=== PATIENT | female | born 1950 | race Caucasian/White ===

== ENCOUNTER 2024-01-21 10:30 | Outpatient (RCR) | payer MEDICARE, SELFPAY ==
--- NOTE | 2023-11-30 14:17 | PTOPEVAL1 ---
Assessment and note entered by Nadiya Quintanilla, PT Evaluation Information Assessment Status Evaluation Diagnosis closed fracture of right patella, Oth. Abnormalities of gait and mobility weakness Stiffness of right knee Onset 11/10/23 Subjective Information Was taking recycle bin out, was ice on the concrete and slipped and fell breaking her knee cap. Had surgery 17 beatriz in her knee and states thinks he saw 2 pins in her knee cap. Currently is in locking knee brace instructions to go up in range on brace by 10 degrees each Thursday until the end of the month. thinks RTD is December 24 then will decide Reports 99% of the pain is gone. Has not had to take her pain medications and has about 8-10 pills left. Reported Pain Level Pain Score 1: Self Report Assessment PT Clinical Summary Pt presents with patellar fracture 11/10/23 with possible pinning of patella. Surgical incision present without signs of infection. Pt demo's abnormal gait pattern, decreased mobility, decreased strength and range of motion secondary to injury and surgical protocol. Pt was very independent and walked for fitness 5x weekly prior to injury. Pt will greatly benefit from therapy to address deficits and return to PLOF Plan of Care Interventions Electrical Stimulation,Gait Training,Hot Pack/Cold Pack,Manual Therapy,Neuro Re-education,Patient/ Caregiver Educati,Therapeutic Activities, Therapeutic Exercise,Self-Care/Home Management PT Services Indicated Yes Treatment Frequency and 1-2x weekly x 10 visits Duration These treatments will address the objective and functional deficits as defined above. The patient will be advanced safely and appropriately in order for the patient to progress towards his/her prior level of function. Additional exercises will be introduced and as well as a comprehensive home exercise program upon discharge, if needed, ?to ensure carryover of functional gains achieved in the clinic. This treatment plan has been reviewed and agreement upon by the patient.
--- NOTE | 2023-11-30 14:19 | PTOPEVAL1 ---
Assessment and note entered by Nadiya Quintanilla, PT Evaluation Information Assessment Status Evaluation Diagnosis closed fracture of right patella Pain in right knee Oth. Abnormalities of gait and mobility Weakness Stiffness of right knee Onset 11/10/23 Subjective Information Was taking recycle bin out, was ice on the concrete and slipped and fell breaking her knee cap. Had surgery 17 beatriz in her knee and states thinks he saw 2 pins in her knee cap. Currently is in locking knee brace instructions to go up in range on brace by 10 degrees each Thursday until the end of the month. thinks RTD is December 24 then will decide Reports 99% of the pain is gone. Has not had to take her pain medications and has about 8-10 pills left. Reported Pain Level Pain Score 1: Self Report Assessment PT Clinical Summary Pt presents with patellar fracture 11/10/23 with possible pinning of patella. Surgical incision present without signs of infection. Pt demo's abnormal gait pattern, decreased mobility, decreased strength and range of motion secondary to injury and surgical protocol. Pt was very independent and walked for fitness 5x weekly prior to injury. Pt will greatly benefit from therapy to address deficits and return to PLOF Plan of Care Interventions Electrical Stimulation,Gait Training,Hot Pack/Cold Pack,Manual Therapy,Neuro Re-education,Patient/ Caregiver Educati,Therapeutic Activities, Therapeutic Exercise,Self-Care/Home Management PT Services Indicated Yes Treatment Frequency and 1-2x weekly x 10 visits Duration These treatments will address the objective and functional deficits as defined above. The patient will be advanced safely and appropriately in order for the patient to progress towards his/her prior level of function. Additional exercises will be introduced and as well as a comprehensive home exercise program upon discharge, if needed, ?to ensure carryover of functional gains achieved in the clinic. This treatment plan has been reviewed and agreement upon by the patient.
--- NOTE | 2023-11-30 14:19 | OPREHPOC ---
Outpatient Therapy Plan of Care This is a Multidisciplinary Plan of Care that may contain components documented by all disciplines (PT, OT, and ST.) PT Problem 1 PT Problem #1 Knowledge Deficit PT Goal 1 Goal Pt will be independent in HEP Pt will verbalize understanding of diagnosis and prognosis Target Visit 8 PT Problem 2 PT Problem #2 Impaired Range of Motion PT Goal 1 Goal Pt will demo passive ROM 0-90 degrees with brace on. Target Visit 10 PT Goal 2 Goal Pt will demo AROM 0-120 to demo functional ROM Target Visit 18 PT Problem 3 PT Problem #3 Impaired Strength PT Goal 1 Goal Pending allowed strengthening, pt will demo knee extension and knee flexion of 3+/5 Target Visit 10 PT Goal 2 Goal Pending allowed strengthening, pt will demo knee extension and knee flexion of 4+/5 Target Visit 18 PT Problem 4 PT Problem #4 Impaired Gait PT Goal 1 Goal Pt will demo gait with either AD or brace pending progression of protocol, to work toward PLOF. Target Visit 10 PT Goal 2 Goal Pt will demo normalized gait pattern with or without brace (pending protocol) to work toward PLOF. Target Visit 18
--- NOTE | 2023-12-23 16:09 | PTOPPROG ---
Assessment and note entered by Nadiya Quintanilla, PT Assessment Status Progress Report Diagnosis closed fracture of right patella Therapy condition pain in right knee weakness stiffness in right knee oth. abnormalities of gait and mobility Onset 11/10/23 Subjective Information Pt is ambulating with single point cane outside of house and short distances in home. Is able to dress herself without help now Continues to have low pain levels. Assessment PT Clinical Summary Pt has attended therapy consistently for s/p ORIF after fall approx 6 weeks ago. She demo's active ROM 0-80 and passive ROM 0-90, has improved her ADLs to dressing herself, and is able to ambulate independently with brace locked with and without cane. Pt will benefit from continued therapy to progress range, strength, and mobility to return to PLOF. Plan of Care Interventions Electrical Stimulation,Gait Training,Hot Pack/Cold Pack,Manual Therapy,Neuro Re-education,Patient/ Caregiver Educati,Therapeutic Activities, Therapeutic Exercise,Self-Care/Home Management PT Services Indicated Yes Treatment Frequency and Cont 2x weekly x 10 visits Duration These treatments will address the objective and functional deficits as defined above. The patient will be advanced safely and appropriately in order for the patient to progress towards his/her prior level of function. Additional exercises will be introduced and as well as a comprehensive home exercise program upon discharge, if needed, ?to ensure carryover of functional gains achieved in the clinic. This treatment plan has been reviewed and agreement upon by the patient.
== END 2024-01-21 11:39 | disposition home or self-care (01) ==
LOC: ANHHIPT 10:30
PROVIDERS: PCP Physician Assistant Medical
DX: S82.001D Unspecified fracture of right patella, subsequent encounter for closed fracture with routine healing (principal)
CPT/HCPCS: 97110; 97112; 97116; 97140; 97162; 97530; 97750